=== PATIENT | male | born 1990 | race Two or more races ===

== ENCOUNTER 2024-07-23 01:19 | Emergency (ER) | payer MEDICAID, OTHER ==
[~2024-07-23] VITALS: Ht 165.1 cm; Wt 49.8 kg
[2024-07-23 01:05] VITALS: TEMP 97.8
[2024-07-23] MEDS: SODIUM CHLORIDE 0.9% 2,000 ML IV ONE (01:19)
[2024-07-23 01:20] LABS: Urine Bacteria FEW /hpf (None Seen); Urine Blood Negative /uL (Negative); Urine Clarity Clear (Clear); Urine Color Orange (Yellow); Urine Protein, UAD 3+ (Negative); Urine Urobilinogen OVER mg/dL (Negative); Urine WBC 4 /hpf (0 - 3); Urine pH 6.5 (5.0-9.0)
[2024-07-23] MEDS: ONDANSETRON ODT 4 MG TAB PO ONE (01:24)
[2024-07-23] MEDS: ACETAMINOPHEN 500 MG TAB PO ONE (01:25)
[2024-07-23] MEDS: KETOROLAC TROMETH 30 MG/ML 1ML VIAL IV ONE (01:28)
[2024-07-23] MEDS: THIAMINE 100mg/ml INJ (200mg/2ml VIAL) IV ONE (01:28)
[2024-07-23 01:30] VITALS: BP 139/107; PULSE 104; RESP 18; O2SAT 97
[2024-07-23] MEDS ORDERED: ZOFR4T PO (01:52)
[2024-07-23] MEDS ORDERED: IBUP1TAB5 PO (01:52)
[2024-07-23] MEDS ORDERED: ACET500T58 PO (01:52)
== END 2024-07-23 02:22 | disposition home or self-care (01) ==
LOC: ER 01:19
DX: F10.239 Alcohol dependence with withdrawal, unspecified (principal); Y90.0 Blood alcohol level of less than 20 mg/100 ml
CPT/HCPCS: 36415; 80320; 81001; 96361; 96374; 96375; 99284; J1885; J3411; J7030; Q0162

== ENCOUNTER 2024-11-28 01:55 | Emergency (ER) | payer MEDICAID ==
[~2024-11-28] VITALS: Ht 165.1 cm; Wt 48.4 kg
[2024-11-28 01:55] VITALS: BP 131/82; PULSE 125; RESP 14; O2SAT 99
[~2024-11-28 01:55] MED LIST: ACET500T58 PO; IBUP1TAB5 PO; ZOFR4T PO
[2024-11-28 03:37] LABS: Basophils # (auto) 0 10 ^3/uL (0-0.2); Basophils % (auto) 0.3 % (0.0-2.0); Eosinophils # (auto) 0 10 ^3/uL (0-0.8); Hematocrit 41.1 % (41.0-53.0); Hemoglobin 13.7 g/dL (13.5-17.5); Lymphocytes # (auto) 2.6 10 ^3/uL (0.4-5.4); Lymphocytes % (auto) 23.5 % (10.0-50.0); Mean Corpuscular Hemoglobin 32.8 pg (28.0-32.0); Mean Corpuscular Hgb Conc. 33.3 g/dL (32.0-36.0); Mean Corpuscular Volume 98.4 fL (80.0-100.0); Monocytes # (auto) 0.5 10 ^3/uL (0-1.3); Monocytes % (auto) 4.5 % (0.0-12.0); Neutrophils # (auto) 7.9 10 ^3/uL (1.6-8.6); Neutrophils % (auto) 71.7 % (37.0-80.0); Nucleated Red Blood Cells % 0.2 %; Platelet Count (auto) 130 10^3/uL (140-450); Red Blood Cells 4.18 10^6/uL (4.5-5.90); Red Cell Distribution Width 17.3 % (11.8-14.3); White Blood Cell 11.1 10^3/uL (4.4-10.8)
[2024-11-28 03:46] LABS: Albumin 4.8 g/dL (3.2-4.8); Alkaline Phosphatase 110 U/L (46-116); Anion Gap 16 (5-15); BUN/Creatinine Ratio 5.8 (10.0-20.0); Carbon Dioxide 22 mmol/L (20-31); Chloride 100 mmol/L (98-107); Lipase 28 U/L (12-53); Magnesium 1.7 mg/dL (1.6-2.6); Potassium 4.2 mmol/L (3.5-5.1); Sodium 138 mmol/L (136-145); Total Protein 7.8 g/dL (5.7-8.2)
[2024-11-28 03:47] LABS: Bilirubin, Total 0.5 mg/dL (0.2-1.0)
[2024-11-28 03:51] LABS: Alanine Aminotransferase 154 U/L (7-40); Aspartate Aminotransferase 325 U/L (13-40); Blood Urea Nitrogen 6 mg/dL (9-23); Calcium 10.4 mg/dL (8.7-10.4); Glucose 265 mg/dL (74-106)
--- NOTE | 2024-11-28 03:59 | ED.PDOC ---
History of Present Illness HPI Comments 34-year-old male, with a history of alcohol abuse, presents with complaint of anxiety and bilateral flank pain. Patient states he is in alcohol withdrawal however also reports his last drink was 1 hour ago. He reports he started drinking a half pt of vodka daily for the past 2 weeks and states this is his second relapse within the past 3 years. Patient states he wants to quit drinking at this time. Patient also inquires assistance with alcohol dependency cessation. Patient denies having any nausea, vomiting, auditory or visual hallucinations, tremors, blurry vision, or other associated symptoms or modifying factors at this time. Chief Complaint: Withdrawal Time Seen by MD: 02:40 Reviewed Notes: Nurses Notes, Medications, Allergies Allergies: Coded Allergies: NO KNOWN ALLERGIES (Unverified , 07/23/24) Home Meds Active Scripts Ibuprofen Micronized (Ibuprofen) 600 Mg Tab, 600 MG PO Q6HP PRN, #20 TAB Prov:ERICK TOMLINSON [facility] 07/23/24 Ondansetron Odt 4MG Tab (ZOFRAN PO) 4 Mg Tb, 4 MG PO Q6HP PRN, #20 TAB ODT TAB-DISSOLVE IN MOUTH, THEN SWALLOW Prov:ERICK TOMLINSON 07/23/24 Acetaminophen (Acetaminophen) 500 Mg Tab, 500 MG PO Q4HP PRN, #30 TAB Prov:ERICK TOMLINSON [facility] 07/23/24 Information Source: Patient Mode of Arrival: Ambulatory Severity: Moderate Timing: Hours Duration: Since onset Prehospital treatment: None Review of Systems: REVIEW OF SYSTEMS: No fever, no chills, or fatigue HEENT: No sore throat, no earache, no congestion, no neck pain. Cardiac: No chest pain. No palpitations. Lungs: No shortness of breath, no cough. GI: No nausea, no vomiting, no diarrhea, no constipation, no abdominal pain : Bilateral flank pain. No dysuria, frequency, or urgency. No hematuria. Musculoskeletal: No joint pain , no joint swelling, no extremity edema. Skin: No rash, no itching. Neuro: No headache, no dizziness, no weakness Psych: Anxiety Vital Signs Vital Signs Date Time Temp Pulse Resp B/P (MAP) Pulse Ox O2 Delivery O2 Flow Rate FiO2 11/28/24 01:55 97.9 125 14 131/82 (98) 99 Physical Exam General: Awake, alert and oriented. No acute distress. Skin: Skin in warm, dry and intact. Appropriate color for ethnicity. HEENT: The head is normocephalic and atraumatic. Conjunctivae are clear without exudates or hemorrhage. Sclera is non-icteric. EOM are intact. No signs of nystagmus. Eyelids are normal in appearance without swelling or lesions. Oral mucosa is pink and moist Neck: The neck is supple with normal range of motion. No JVD. Cardiac: Heart rate and rhythm are normal. No murmurs, gallops, or rubs are auscultated. Respiratory: No signs of respiratory distress. Lung sounds are clear in all lobes bilaterally without rales, ronchi, or wheezes. Abdominal: Abdomen is soft, non-tender without distention. Bowel sounds are present and normoactive in all four quadrants. Extremities: Upper and lower extremities are atraumatic in appearance without deformity or edema. Neurological: The patient is awake, alert and oriented to person, place, and time with normal speech. Speech is clear. There is no facial asymmetry. Psychiatric: Appropriate mood and affect. Good judgement and insight. No visual or auditory hallucinations. Past Medical History PAST MEDICAL HISTORY: Denies Surgical History: Denies all surgeries Family History Family History: Reviewed,noncontributory to illness, No family hx of Cancer, No family hx of DM, No family hx of Heart gen, No family hx of HTN, No family hx ofKidney gen, No family hx of Liver gen, No family hx of Lung gen, No family hx of Stroke Social History Smoker: Non-Smoker Alcohol: Heavy Drugs: Denies Drug Use Lives In: Home Was a procedure done? Was a procedure done?: No Differential Dx Considerations may include: UTI, musculoskeletal pain, anxiety X-Ray, Labs, Meds, VS Vital Signs Date Time Temp Pulse Resp B/P (MAP) Pulse Ox O2 Delivery O2 Flow Rate FiO2 11/28/24 01:55 97.9 125 14 131/82 (98) 99 Lab Test 11/28/24 02:53 11/28/24 02:19 Range/Units White Blood Count 11.1 H 4.4-10.8 10^3/uL Red Blood Count 4.18 L 4.5-5.90 10^6/uL Hemoglobin 13.7 13.5-17.5 g/dL Hematocrit 41.1 41.0-53.0 % Mean Corpuscular Volume 98.4 80.0-100.0 fL Mean Corpuscular Hemoglobin 32.8 H 28.0-32.0 pg Mean Corpuscular Hemoglobin Concent 33.3 32.0-36.0 g/dL Red Cell Distribution Width 17.3 H 11.8-14.3 % Platelet Count 130 L 140-450 10^3/uL Mean Platelet Volume 7.3 6.9-10.8 fL Neutrophils (%) (Auto) 71.7 37.0-80.0 % Lymphocytes (%) (Auto) 23.5 10.0-50.0 % Monocytes (%) (Auto) 4.5 0.0-12.0 % Eosinophils (%) (Auto) 0.0 0.0-7.0 % Basophils (%) (Auto) 0.3 0.0-2.0 % Neutrophils # (Auto) 7.9 1.6-8.6 10 ^3/uL Lymphocytes # (Auto) 2.6 0.4-5.4 10 ^3/uL Monocytes # (Auto) 0.5 0-1.3 10 ^3/uL Eosinophils # (Auto) 0 0-0.8 10 ^3/uL Basophils # (Auto) 0 0-0.2 10 ^3/uL Nucleated Red Blood Cells 0.2 % Sodium Level 138 136-145 mmol/L Potassium Level 4.2 3.5-5.1 mmol/L Chloride Level 100 98-107 mmol/L Carbon Dioxide Level 22 20-31 mmol/L Anion Gap 16 H 5-15 Blood Urea Nitrogen 6 L 9-23 mg/dL Creatinine 1.04 0.700-1.30 mg/dL Glomerular Filtration Rate Calc 97 >90 mL/min BUN/Creatinine Ratio 5.8 L 10.0-20.0 Serum Glucose 265 H 74-106 mg/dL Lactic Acid Level 4.6 *H 0.4-2.0 mmol/L Calcium Level 10.4 8.7-10.4 mg/dL Magnesium Level 1.7 1.6-2.6 mg/dL Total Bilirubin 0.5 0.2-1.0 mg/dL Aspartate Amino Transferase (AST) 325 H 13-40 U/L Alanine Aminotransferase (ALT) 154 H 7-40 U/L Alkaline Phosphatase 110 46-116 U/L C-Reactive Protein High Sensitivity 0.07 <1.0 mg/dL Total Protein 7.8 5.7-8.2 g/dL Albumin 4.8 3.2-4.8 g/dL Lipase 28 12-53 U/L Plasma/Serum Blood Alcohol 29.9 H <10 mg/dL Urine Color Yellow Yellow Urine Clarity Clear Clear Urine pH 6.5 5.0-9.0 Urine Specific [place] 1.030 1.001-1.035 Urine Protein 1+ H Negative Urine Ketones 2+ H Negative Urine Blood Negative Negative /uL Urine Nitrite Negative Negative Urine Bilirubin 1+ Negative Urine Urobilinogen 6 Negative mg/dL Urine Leukocyte Esterase Negative Negative /uL Urine RBC 1 0 - 3 /hpf Urine Microscopic WBC 2 0-3 /HPF Urine Squamous Epithelial Cells None seen <5 /hpf Urine Calcium Oxalate Crystals Few None Seen Urine Bacteria Few H None Seen /hpf Urine Hyaline Casts Few 0 - 2 /lpf Urine Mucus Few None Seen Urine Glucose Trace Normal mg/dL Urine Opiates Screen Neg NEGATIVE Urine Fentanyl Screen Neg NEGATIVE Urine Barbiturates Screen Neg NEGATIVE Urine Phencyclidine Screen Neg NEGATIVE Urine Amphetamines Screen Neg NEGATIVE Urine Benzodiazepines Screen Neg NEGATIVE Urine Cocaine Screen Neg NEGATIVE Urine Cannabinoids Screen Neg NEGATIVE Time of 1ST Reevaluation: 03:10 Reevaluation 1ST: Unchanged Patient Education/Counseling: Treatment, Need For Follow Up Family Education/Counseling: No Family Present Departure 1 Departure Time of Disposition: 19:56 Impression: Primary Impression: Flank pain Additional Impressions: Alcohol abuse Eloped from emergency department Disposition: 07 LEFT AWOL/ELOPED Condition: Stable Comments 34-year-old male with history of alcohol abuse presents to the emergency department with bilateral flank pain. Patient was seen and examined in the triage area, discussed plan of care with the patient who agreed. Patient then eloped from the emergency department prior to completing treatment and diagnostic testing. [facility] within [facility] department or in the parking lot. Critical Care Note Critical Care Time?: No Stability Stability form required: No Heart Score Heart Score: Heart Score Response (Comments) Value History N/A 0 EKG N/A 0 Age N/A 0 Risk Factors N/A 0 Troponin N/A 0 Total 0 I personally scribed for MARGOT CANCHOLA MD ([email or web address]) on 11/28/24 at 03:59. Electronically submitted by Yoni Pak ([email or web address]). MARGOT CANCHOLA MD Nov 28, 2024 03:59
[2024-11-28] MEDS ORDERED: hydrOXYzine 25 MG TAB or CAP PO ONE (04:00)
[2024-11-28] MEDS ORDERED: KETOROLAC TROMETH 30 MG/ML 1ML VIAL IM ONE (04:00)
[2024-11-28 04:03] LABS: Lactic Acid w/Reflex 4.6 mmol/L (0.4-2.0)
[2024-11-28 04:08] LABS: Blood Alcohol 29.9 mg/dL (<10); CRP High Sensitivity 0.07 mg/dL (<1.0)
[2024-11-28] MEDS ORDERED: SODIUM CHLORIDE 0.9% 1,000 ML IV ONE ×2 (04:45)
[2024-11-28 05:06] LABS: Urine Bacteria FEW /hpf (None Seen); Urine Blood Negative /uL (Negative); Urine Clarity Clear (Clear); Urine Color Yellow (Yellow); Urine Hyaline Cast FEW /lpf (0 - 2); Urine Mucus FEW (None Seen); Urine Protein, UAD 1+ (Negative); Urine Squamous Epithelial Cell None Seen /hpf (<5); Urine Urobilinogen 6 mg/dL (Negative); Urine WBC 2 /HPF (0-3); Urine pH 6.5 (5.0-9.0)
[2024-11-28 05:15] LABS: Amphetamine Screen, Urine Neg (NEGATIVE)
[2024-11-28 05:16] LABS: Barbiturate Scree,Urine Neg (NEGATIVE); Cannabinoid Screen, Urine Neg (NEGATIVE); Cocaine Screen, Urine Neg (NEGATIVE)
[2024-11-28 05:20] LABS: Benzodiazephine Screen, Urine Neg (NEGATIVE); Opiate Scree,Urine Neg (NEGATIVE); Phencyclidine Screen, Urine Neg (NEGATIVE)
== END 2024-11-28 06:01 | disposition left against medical advice (07) ==
LOC: ER 01:55
DX: F10.10 Alcohol abuse, uncomplicated (principal); R10.9 Unspecified abdominal pain; Z79.899 Other long term (current) drug therapy; X58.XXXA Exposure to other specified factors, initial encounter
CPT/HCPCS: 36415; 80053; 80307; 80320; 81001; 83605; 83690; 83735; 85025; 86141

== ENCOUNTER 2024-12-09 04:47 | Emergency (ER) | payer MEDICAID ==
[~2024-12-09] VITALS: Ht 165.1 cm; Wt 48.9 kg
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
[2024-12-09 07:24] VITALS: BP 140/97; PULSE 80; RESP 18; TEMP 97.5; O2SAT 100
[2024-12-09] MEDS: HYDROcodone-ACET 5/325MG TAB PO ONE (07:34)
[2024-12-09] MEDS ORDERED: HYDR-4902 PO (08:01)
== END 2024-12-09 08:16 | disposition home or self-care (01) ==
LOC: ER 04:47
DX: G43.909 Migraine, unspecified, not intractable, without status migrainosus (principal); Z79.899 Other long term (current) drug therapy